=== PATIENT | male | born 1980 | race Hispanic/Latino ===

== ENCOUNTER 2024-09-08 11:42 | Emergency (ER) | payer BC ==
[~2024-09-08] VITALS: Ht 177.8 cm; Wt 102.3 kg
[~2024-09-08 11:42] MED LIST: CEPH500C PO; IBUP-1022 PO
[2024-09-08 16:39] LABS: BASO # 0.1 10^3/uL (0.0-0.2); BASO % 1.1 % (0.0-1.0); EOS # 0.5 10^3/uL (0.0-0.5); EOS % 6.0 % (0.0-3.0); LYMPH # 2.7 10^3/uL (1.5-5.0); LYMPH % 31.0 % (24.0-44.0); MONO # 0.7 10^3/uL (0.0-0.8); MONO % 8.5 % (2.0-8.0); NEUTROPHILS # 4.5 10^3/uL (1.5-8.5); NEUTROPHILS % 52.7 % (36.0-66.0); PLATELET COUNT, AUTOMATED 272 10^3/uL (150-450)
[2024-09-08 17:03] LABS: C REACTIVE PROTEIN QUANTITATIV < 0.50 MG/DL (<1.0); CALCIUM LEVEL 8.7 MG/DL (8.5-10.1); CARBON DIOXIDE LEVEL 22 MMOL/L (20-31); CHLORIDE LEVEL 109 MMOL/L (98-107); CREATININE FOR GFR 0.87 MG/DL (0.70-1.30); GLOMERULAR FILTRATION RATE > 90.0 (>60); POTASSIUM SERUM 4.2 MMOL/L (3.5-5.1); SODIUM LEVEL 142 MMOL/L (136-145)
[2024-09-08 17:07] LABS: ERYTHROCYTE SEDIMENTATION RATE 1 mm/hr (0-15)
[2024-09-08 17:42] VITALS: BP 131/80; TEMP 96.8; O2SAT 97
[2024-09-08] MEDS ORDERED: BACT800T5 PO (17:45)
[2024-09-08] MEDS: BACTRIM 160MG/800MG DS TAB PO ONE (17:49)
== END 2024-09-08 17:54 | disposition home or self-care (01) ==
LOC: M ED 11:42
DX: L02.211 Cutaneous abscess of abdominal wall (principal); Z79.2 Long term (current) use of antibiotics; Z79.1 Long term (current) use of non-steroidal anti-inflammatories (NSAID)